=== PATIENT | male | born 1985 | race Hispanic/Latino ===

== ENCOUNTER 2017-01-03 14:03 | Emergency (ER) | payer SELFPAY ==
[2017-01-03 15:04] VITALS: BP 121/89
--- NOTE | 2017-01-03 15:07 | Emergency Department Report ---
Chief Complaint: Nausea/Vomiting/Diarrhea Stated Complaint: NAUSEA/FATIGUE/CHRONS FLARE UP Time Seen by Provider: 01/03/17 15:03 - HPI History of Present Illness: PT c/o watery diarrhea at least 14 times today. PT states he has a hx of Crohn' s - ROS Review of Systems: + fever + abd pain + sore throat - Exam Physical Exam: PT looks well, non toxic. GCS 15 MSE screening note: Focused history and physical exam performed. Due to findings the following was ordered: labs ED Disposition for MSE Condition: Stable
[2017-01-03 15:18] LABS: Basophils % (Auto) 0.3 % (0.0-1.8); Eosinophils % (Auto) 3.8 % (0.0-4.3); Hematocrit 48.5 % (35.5-45.6); Hemoglobin 16.1 gm/dl (11.8-15.2); Mean Corpuscular HGB Conc 33 % (32-34); Mean Corpuscular Hemoglobin 30 pg (28-32); Mean Corpuscular Volume 91 fl (84-94); Platelet Count 219 K/mm3 (140-440); Red Blood Count 5.36 M/mm3 (3.65-5.03); Red Cell Distribution Width 14.4 % (13.2-15.2); White Blood Count 9.1 K/mm3 (4.5-11.0)
[2017-01-03 16:01] LABS: Alanine Aminotransferase 68 units/L (7-56); Albumin/Globulin Ratio 1.2 %; Alkaline Phosphatase 80 units/L (35-129); Anion Gap 16 mmol/L; Blood Urea Nitrogen 13 mg/dL (9-20); Calcium 9.3 mg/dL (8.4-10.2); Carbon Dioxide 27 mmol/L (22-30); Chloride 99.3 mmol/L (98-107); Glucose 111 mg/dL (75-100); Lipase 13 units/L (13-60); Potassium 4.1 mmol/L (3.6-5.0); Sodium 138 mmol/L (137-145); Total Protein 7.3 g/dL (6.3-8.2)
[2017-01-03 16:26] LABS: Bilirubin,Urine NEG (Negative); Blood,Urine MOD (Negative); Ketones,Urine TR mg/dL (Negative); Leukocyte Esterase,Urine NEG (Negative); Mucus,Urine 3+ /HPF; Nitrite,Urine NEG (Negative); Urobilinogen,Urine < 2.0 mg/dL (<2.0)
--- NOTE | 2017-01-08 11:01 | ED Elopement Review ---
ED Pt Elopement review - Results review Lab results: Laboratory Tests 01/03/17 01/03/17 01/03/17 15:09 15:09 15:09 WBC 9.1 RBC 5.36 H Hgb 16.1 H Hct 48.5 H MCV 91 MCH 30 MCHC 33 RDW 14.4 Plt Count 219 Lymph % (Auto) 19.2 [place] % (Auto) 10.8 H Eos % (Auto) 3.8 Baso % (Auto) 0.3 Lymph # 1.7 [place] # 1.0 H Eos # 0.3 Baso # 0.0 Seg Neutrophils % 65.9 Seg Neutrophils # 6.0 Sodium 138 Potassium 4.1 Chloride 99.3 Carbon Dioxide 27 Anion Gap 16 BUN 13 Creatinine 1.0 Estimated GFR > 60 BUN/Creatinine Ratio 13.00 Glucose 111 H Calcium 9.3 Total Bilirubin 0.40 AST 57 H ALT 68 H Alkaline Phosphatase 80 Total Creatine Kinase 96 Total Protein 7.3 Albumin 4.0 Albumin/Globulin Ratio 1.2 Lipase 13 Urine Color Urine Turbidity Urine pH Ur Specific [place] Urine Protein Urine Glucose (UA) Urine Ketones Urine Blood Urine Nitrite Urine Bilirubin Urine Urobilinogen Ur Leukocyte Esterase Urine WBC (Auto) Urine RBC (Auto) Calcium Oxalate Crystal Hyaline Casts Urine Mucus 01/03/17 15:54 WBC RBC Hgb Hct MCV MCH MCHC RDW Plt Count Lymph % (Auto) [place] % (Auto) Eos % (Auto) Baso % (Auto) Lymph # [place] # Eos # Baso # Seg Neutrophils % Seg Neutrophils # Sodium Potassium Chloride Carbon Dioxide Anion Gap BUN Creatinine Estimated GFR BUN/Creatinine Ratio Glucose Calcium Total Bilirubin AST ALT Alkaline Phosphatase Total Creatine Kinase Total Protein Albumin Albumin/Globulin Ratio Lipase Urine Color [place] Urine Turbidity Clear Urine pH 5.0 Ur Specific [place] 1.032 H Urine Protein 30 mg/dl Urine Glucose (UA) Neg Urine Ketones Tr Urine Blood Mod Urine Nitrite Neg Urine Bilirubin Neg Urine Urobilinogen < 2.0 Ur Leukocyte Esterase Neg Urine WBC (Auto) 2.0 Urine RBC (Auto) 45.0 Calcium Oxalate Crystal 1+ Hyaline Casts 1 Urine Mucus 3+ - Call Back decision Pt Call Back Decision: No action required
== END 2017-01-03 15:30 | disposition left against medical advice (07) ==
LOC: ED 14:03
DX: R19.7 Diarrhea, unspecified (principal); R11.0 Nausea; R53.83 Other fatigue; Z53.21 Procedure and treatment not carried out due to patient leaving prior to being seen by health care provider
CPT/HCPCS: 36415; 80053; 81001; 82550; 83690; 85025